=== PATIENT | male | born 1945 | race American Indian/Alaskan Native ===

== ENCOUNTER 2019-04-08 13:48 | Inpatient (IN) | payer MEDICARE ==
--- NOTE | 2019-04-08 15:19 | Emergency Department Report ---
ED General Adult HPI - General Chief complaint: Weakness Stated complaint: NEURO ISSUES Time Seen by Provider: 04/08/19 15:04 Source: family, EMS (verbal report received from emergency medical services. EMS documentation not available at time of chart dictation ), RN notes reviewed Mode of arrival: Stretcher Limitations: Language Barrier, Physical Limitation, Other (patient is demented and bedbound.) - History of Present Illness Initial comments: History of present illness obtained from EMS and patient's sister, who reports that she is the patient's power of tax associate attorney. The patient is a 74-year-old gentleman, with a history of dementia, probable mu ltiple strokes, bedbound. The patient was on hospice as per sister, taken off of hospice yesterday. The patient reportedly follows at the [facility]. As per verbal report from emergency medical services, 911 contacted for fluctuating mental status and poor appetite. There is no discrete loss of consciousness that EMS is aware of. As per the patient's sister, patient not eating or drinking well. There is no vomiting. No fevers. This has been going on for the past few days. Sister is not interested in tube feeds or PEG tube at this time. No diarrhea. Symptoms are constant, do not radiate anywhere as per sister, they worsen when the patient eats. Long-term goals of care and advanced directives not clarified at this point in time. -: Gradual Quality: other Consistency: other Improves with: other Worsens with: other ED Review of Systems ROS: Stated complaint: NEURO ISSUES Other details as noted in HPI Comment: Unobtainable due to pts medical conditions Constitutional: weakness Eyes: denies: eye discharge ENT: denies: congestion Respiratory: denies: wheezing Cardiovascular: denies: syncope Gastrointestinal: denies: diarrhea Genitourinary: denies: frequency Neurological: weakness ED Past Medical Hx - Past Medical History Hx CVA: Yes Hx Dementia: Yes - Surgical History Past Surgical History?: No - Social History Smoking Status: Former Smoker Substance Use Type: None ED Physical Exam - General Limitations: Language Barrier, Physical Limitation, Other (patient is demented. Patient is bedbound.) General appearance: in no apparent distress - Head Head exam: Present: atraumatic, normocephalic - Eye Eye exam: Present: normal appearance, PERRL - ENT ENT exam: Present: mucous membranes dry, normal external ear exam - Neck Neck exam: Present: normal inspection, full ROM. Absent: tenderness, meningismus - Respiratory Respiratory exam: Present: normal lung sounds bilaterally. Absent: respiratory distress - Cardiovascular Cardiovascular Exam: Present: normal rhythm, bradycardia, normal heart sounds. Absent: systolic murmur, diastolic murmur, rubs, gallop - GI/Abdominal GI/Abdominal exam: Present: soft, other (patient moans when I palpate on his abdomen initially. On subsequent examinations, he does not moan.). Absent: distended, guarding, rebound, rigid - Rectal Rectal exam: Present: normal inspection - Extremities Exam Extremities exam: Present: normal inspection, other (2+ pulses noted in the bilateral upper and lower extremities. There is no palpable cord. negative Homans sign. Muscular compartments are soft. The pelvis is stable.). Absent: tenderness - Back Exam Back exam: Present: normal inspection. Absent: tenderness, CVA tenderness (R), CVA tenderness (L), paraspinal tenderness, vertebral tenderness - Neurological Exam Neurological exam: Present: other (the patient is awake. The patient makes nonsensical sounds. He is moving his bilateral upper extremities. Detailed neurologic examination not possible secondary to dementia, bedbound status.) - Skin Skin exam: Present: warm, dry, intact, normal color, other (sacral wounds, or sacral ulcers noted.). Absent: rash ED Course Vital Signs 04/08/19 04/08/19 04/08/19 14:20 14:24 14:31 Temperature 98.2 F Pulse Rate 52 L Respiratory 10 L 13 18 Rate Blood Pressure 156/88 O2 Sat by Pulse 97 98 95 Oximetry 04/08/19 04/08/19 04/08/19 14:42 16:01 16:54 Temperature 97.6 F Pulse Rate 52 L 47 L Respiratory 13 Rate Blood Pressure 156/88 O2 Sat by Pulse 95 Oximetry 04/08/19 18:07 Temperature Pulse Rate 60 Respiratory 14 Rate Blood Pressure 148/97 O2 Sat by Pulse 82 L Oximetry - Reevaluation(s) Reevaluation #1: 04/08/19 15:40 Differential diagnosis, including but not limited to: Dysphagia, dehydration, swallowing disorder, pneumonia, aspiration, urinary trac t infection, malnutrition, constipation, obstruction, ileus Assessment and plan: 74-year-old gentleman with difficulty swallowing and episodes of fluctuating consciousness. In the emergency room, the patient is awake. He is protecting his airway at this time. Accu-Chek is within normal limits. No sacral ulcer noted. Nursing team has administered a bedside swallow screen for the patient, which he unfortunately felt. A formal fluoroscopic barium swallow has been ordered. Given history of fluctuating consciousness, CT scan of the brain will be obtained. X-ray of the chest shows no obvious pneumonia, however, there is nonspecific dilatation of intestinal anatomy noted subdiaphragmatic CT scan abdomen and pelvis ordered. Urinalysis ordered. Rectal temperature, remainder screening laboratory studies ordered. We will reassess after data points have resulted. Reevaluation #2: 04/08/19 18:14 Radiology not able to perform fluoroscopy study as there is currently nobody in- house/no available radiologist to perform the study. Laboratory studies suggest dehydration, possible urinary tract infection. Patient failed swallow screen, therefore, not a candidate for oral antibiotics or oral hydration. CT scan brain and abdomen pelvis pending at this time. Extensive discussion had with patient sister suspect power of tax associate attorney. She is amenable to the patient being hospitalized for supportive care. She is still feeling indecisive about a feeding tube at this point. Hospital team to admit the patient. We will defer to the inpatient team to further clarify an elaborate goals of care. Reevaluation #3: 04/08/19 18:53 CT scan of the brain is negative for acute disease. CT scan of the abdomen pelvis is negative for acute disease. Hospital team paged for admission. Reevaluation #4: 04/08/19 20:42 [employer]UTTER Draren Garcia to accept to the medical service ED Medical Decision Making - Lab Data Result diagrams: 04/08/19 16:21 04/08/19 16:21 Vital Signs 04/08/19 04/08/19 04/08/19 14:24 14:31 14:42 Temperature 98.2 F Pulse Rate 52 L 52 L Respiratory 13 18 Rate Blood Pressure 156/88 O2 Sat by Pulse 98 95 Oximetry Vital Signs 04/08/19 04/08/19 04/08/19 14:24 14:31 14:42 Temperature 98.2 F Pulse Rate 52 L 52 L Respiratory 13 18 Rate Blood Pressure 156/88 O2 Sat by Pulse 98 95 Oximetry Vital Signs 12/16/19 12/16/19 12/16/19 14:20 14:24 14:31 Temperature 98.2 F Pulse Rate 52 L Respiratory 10 L 13 18 Rate Blood Pressure 156/88 O2 Sat by Pulse 97 98 95 Oximetry 04/08/19 04/08/19 04/08/19 14:42 16:01 16:54 Temperature 97.6 F Pulse Rate 52 L 47 L Respiratory 13 Rate Blood Pressure 156/88 O2 Sat by Pulse 95 Oximetry Lab Results 04/08/19 04/08/19 04/08/19 Range/Units 15:21 16:21 16:21 WBC 7.2 (4.5-11.0) K/mm3 RBC 6.91 H (3.65-5.03) M/mm3 Hgb 17.6 H (11.8-15.2) gm/dl Hct 56.5 H (35.5-45.6) % MCV 82 L (84-94) fl MCH 26 L (28-32) pg MCHC 31 L (32-34) % RDW 18.4 H (13.2-15.2) % Plt Count 70 L (140-440) K/mm3 PT 12.9 (12.2-14.9) Sec. INR 0.96 (0.87-1.13) Sodium (137-145) mmol/L Potassium (3.6-5.0) mmol/L Chloride (98-107) mmol/L Carbon Dioxide (22-30) mmol/L Anion Gap mmol/L BUN (9-20) mg/dL Creatinine (0.8-1.5) mg/dL Estimated GFR ml/min BUN/Creatinine Ratio % Glucose (75-100) mg/dL POC Glucose 84 (70-105) Lactic Acid (0.7-2.0) mmol/L Calcium (8.4-10.2) mg/dL Magnesium (1.7-2.3) mg/dL Total Bilirubin (0.1-1.2) mg/dL AST (5-40) units/L ALT (7-56) units/L Alkaline Phosphatase (35-129) units/L Total Creatine Kinase (55-170) units/L Total Protein (6.3-8.2) g/dL Albumin (3.9-5) g/dL Albumin/Globulin Ratio % TSH (0.270-4.200) mlU/mL Urine Color (Yellow) Urine Turbidity (Clear) Urine pH (5.0-7.0) Ur Specific Citra (1.003-1.030) Urine Protein (Negative) mg/dL Urine Glucose (UA) (Negative) mg/dL Urine Ketones (Negative) mg/dL Urine Blood (Negative) Urine Nitrite (Negative) Urine Bilirubin (Negative) Urine Urobilinogen (<2.0) mg/dL Ur Leukocyte Esterase (Negative) Urine WBC (Auto) (0.0-6.0) /HPF Urine RBC (Auto) (0.0-6.0) /HPF Urine Bacteria (Auto) (Negative) /HPF Urine Mucus /HPF Salicylates (2.8-20.0) mg/dL Acetaminophen (10.0-30.0) ug/mL 04/08/19 04/08/19 04/08/19 Range/Units 16:21 16:21 16:21 WBC (4.5-11.0) K/mm3 RBC (3.65-5.03) M/mm3 Hgb (11.8-15.2) gm/dl Hct (35.5-45.6) % MCV (84-94) fl MCH (28-32) pg MCHC (32-34) % RDW (13.2-15.2) % Plt Count (140-440) K/mm3 PT (12.2-14.9) Sec. INR (0.87-1.13) Sodium 142 (137-145) mmol/L Potassium 4.9 (3.6-5.0) mmol/L Chloride 105.4 (98-107) mmol/L Carbon Dioxide 20 L (22-30) mmol/L Anion Gap 22 mmol/L BUN 7 L (9-20) mg/dL Creatinine 0.9 (0.8-1.5) mg/dL Estimated GFR > 60 ml/min BUN/Creatinine Ratio 8 % Glucose 86 (75-100) mg/dL POC Glucose (70-105) Lactic Acid (0.7-2.0) mmol/L Calcium 9.8 (8.4-10.2) mg/dL Magnesium 2.30 (1.7-2.3) mg/dL Total Bilirubin 0.70 (0.1-1.2) mg/dL AST 20 (5-40) units/L ALT 9 (7-56) units/L Alkaline Phosphatase 108 (35-129) units/L Total Creatine Kinase 79 (55-170) units/L Total Protein 7.4 (6.3-8.2) g/dL Albumin 4.0 (3.9-5) g/dL Albumin/Globulin Ratio 1.2 % TSH 1.230 (0.270-4.200) mlU/mL Urine Color (Yellow) Urine Turbidity (Clear) Urine pH (5.0-7.0) Ur Specific Citra (1.003-1.030) Urine Protein (Negative) mg/dL Urine Glucose (UA) (Negative) mg/dL Urine Ketones (Negative) mg/dL Urine Blood (Negative) Urine Nitrite (Negative) Urine Bilirubin (Negative) Urine Urobilinogen (<2.0) mg/dL Ur Leukocyte Esterase (Negative) Urine WBC (Auto) (0.0-6.0) /HPF Urine RBC (Auto) (0.0-6.0) /HPF Urine Bacteria (Auto) (Negative) /HPF Urine Mucus /HPF Salicylates < 0.3 L (2.8-20.0) mg/dL Acetaminophen (10.0-30.0) ug/mL 04/08/19 04/08/19 04/08/19 Range/Units 16:21 16:21 Unknown WBC (4.5-11.0) K/mm3 RBC (3.65-5.03) M/mm3 Hgb (11.8-15.2) gm/dl Hct (35.5-45.6) % MCV (84-94) fl MCH (28-32) pg MCHC (32-34) % RDW (13.2-15.2) % Plt Count (140-440) K/mm3 PT (12.2-14.9) Sec. INR (0.87-1.13) Sodium (137-145) mmol/L Potassium (3.6-5.0) mmol/L Chloride (98-107) mmol/L Carbon Dioxide (22-30) mmol/L Anion Gap mmol/L BUN (9-20) mg/dL Creatinine (0.8-1.5) mg/dL Estimated GFR ml/min BUN/Creatinine Ratio % Glucose (75-100) mg/dL POC Glucose (70-105) Lactic Acid 2.20 H* (0.7-2.0) mmol/L Calcium (8.4-10.2) mg/dL Magnesium (1.7-2.3) mg/dL Total Bilirubin (0.1-1.2) mg/dL AST (5-40) units/L ALT (7-56) units/L Alkaline Phosphatase (35-129) units/L Total Creatine Kinase (55-170) units/L Total Protein (6.3-8.2) g/dL Albumin (3.9-5) g/dL Albumin/Globulin Ratio % TSH (0.270-4.200) mlU/mL Urine Color Yellow (Yellow) Urine Turbidity Clear (Clear) Urine pH 5.0 (5.0-7.0) Ur Specific Citra 1.012 (1.003-1.030) Urine Protein <15 mg/dl (Negative) mg/dL Urine Glucose (UA) Neg (Negative) mg/dL Urine Ketones Neg (Negative) mg/dL Urine Blood Mod (Negative) Urine Nitrite Neg (Negative) Urine Bilirubin Neg (Negative) Urine Urobilinogen < 2.0 (<2.0) mg/dL Ur Leukocyte Esterase Tr (Negative) Urine WBC (Auto) 11.0 H (0.0-6.0) /HPF Urine RBC (Auto) 8.0 (0.0-6.0) /HPF Urine Bacteria (Auto) 1+ (Negative) /HPF Urine Mucus Few /HPF Salicylates (2.8-20.0) mg/dL Acetaminophen < 5.0 L (10.0-30.0) ug/mL - EKG Data -: EKG Interpreted by Me EKG shows normal: sinus rhythm Rate: normal - EKG Data When compared to previous EKG there are: previous EKG unavailable 04/08/19 18:15 The EKG today shows a bradycardic rhythm, sinus, 49 bpm, normal axis, QTC within normal limits, low voltage, left ventricular hypertrophy, no endorsement of chest pain, the EKG is abnormal, it is not consistent with ST elevation myocardial infarction. There is no prior for comparison. - Radiology Data Radiology results: report reviewed, image reviewed Critical care attestation.: If time is entered above; I have spent that time in minutes in the direct care of this critically ill patient, excluding procedure time. ED Disposition Clinical Impression: Dysphagia, Failure to thrive, Dementia, Bedbound Disposition: DC-09 OP ADMIT IP TO THIS HOSP Is pt being admited?: Yes Condition: Fair Referrals: PRIMARY CARE, [Primary Care Provider] - 3-5 Days
--- NOTE | 2019-04-08 15:40 | XRay Report ---
CHEST 1 VIEW INDICATION / CLINICAL INFORMATION: weakness aspiration. COMPARISON: None available. FINDINGS: SUPPORT DEVICES: None. HEART / MEDIASTINUM: No significant abnormality. LUNGS / PLEURA: No focal infiltrate is seen. There is mild elevation left hemidiaphragm.. No pneumot horax. ADDITIONAL FINDINGS: No significant additional findings. IMPRESSION: 1. No acute findings. Signer Name: Sharath Barnes MD Signed: 04/08/2019 3:35 PM Workstation Name: [id number]
[2019-04-08 16:40] LABS: Bacteria,Urine 1+ /HPF (Negative); Bilirubin,Urine NEG (Negative); Blood,Urine MOD (Negative); Color,Urine Yellow (Yellow); Mucus,Urine FEW /HPF; Protein,Urine <15 mg/dL mg/dL (Negative); Urobilinogen,Urine < 2.0 mg/dL (<2.0)
[2019-04-08 16:43] LABS: Hematocrit 56.5 % (35.5-45.6); Hemoglobin 17.6 gm/dl (11.8-15.2); Mean Corpuscular HGB Conc 31 % (32-34); Mean Corpuscular Volume 82 fl (84-94); Red Blood Count 6.91 M/mm3 (3.65-5.03); Red Cell Distribution Width 18.4 % (13.2-15.2)
[2019-04-08 16:52] LABS: INR 0.96 (0.87-1.13)
[2019-04-08 17:01] LABS: BUN/Creatinine Ratio 8; Blood Urea Nitrogen 7 mg/dL (9-20); Calcium 9.8 mg/dL (8.4-10.2); Hemolysis Index 93
[2019-04-08 17:09] LABS: Alanine Aminotransferase 9 units/L (7-56)
[2019-04-08] MEDS ORDERED: SODIUM CHLORIDE 0.9% 500 ML 500 ML IV ONE (17:09)
[2019-04-08 17:17] LABS: Platelet Count 70 K/mm3 (140-440)
[2019-04-08] MEDS: D5W/0.45% NACL 1,000 ML IV SCH (17:37)
--- NOTE | 2019-04-08 18:35 | Cat Scan Report ---
CT abdomen pelvis wo con INDICATION: abd pain ileus vs sbo. TECHNIQUE: All CT scans at this location are performed using CT dose reduction for ALARA by means of automated e xposure control. COMPARISON: None available. FINDINGS: Images are suboptimal since the patient was unable to raise his arms or hold his breath. Slight atelectasis in both lung bases. Liver, gallbladder, spleen and pancreas are grossly negative o n this noncontrast exam. There is very mild dilatation of the left collecting system, but the left ur eter is normal. Right kidney and both adrenals are negative. No urinary tract calculi. Pelvis Urinary bladder is mildly distended and slightly thick walled. Prostate is quite prominent. Normal ap pendix. No free fluid or inflammation. No abnormal bowel distention to indicate ileus or bowel obstru ction. No acute skeletal lesions. IMPRESSION: 1. Prostate enlargement and probable chronic bladder outlet obstruction. 2. No acute abnormalities. Signer Name: Suhail Palacios MD Signed: 04/08/2019 6:30 PM Workstation Name: [id number]
--- NOTE | 2019-04-08 18:39 | Cat Scan Report ---
CT head/brain wo con INDICATION / CLINICAL INFORMATION: 74 years Male; WEAK AMS CHRONIC. TECHNIQUE: Routine CT head without contrast. All CT scans at this location are performed using CT dos e reduction for ALARA by means of automated exposure control. Motion artifact COMPARISON: None. FINDINGS: BRAIN / INTRACRANIAL CONTENTS: No acute hemorrhage, mass effect, midline shift, hydrocephalus, or acu te, large territorial infarct. Moderate cerebral atrophy. There are extensive areas of decreased attenuation in the white matter of the cerebral hemispheres, a s well as the gangliocapsular regions. These are nonspecific findings and may be related to microangi opathy (hypertension, diabetes, atherosclerosis), given the patient's age. It might be difficult to e valuate for small areas of ischemia without diffusion imaging by MRI. CRANIOCERVICAL JUNCTION: No significant abnormality. ORBITS: No significant abnormality of visualized orbits. SINUSES / MASTOIDS: There is complete opacification of the left maxillary antrum. ADDITIONAL FINDINGS: No significant atherosclerotic disease appreciated. IMPRESSION: 1. No focal mass, hemorrhage, hydrocephalus, or acute, large territorial infarct. However, study is m arkedly limited by motion. Repeat scan may be of benefit, when patient's condition improves. Signer Name: Jayson Dewitt MD, III Signed: 04/08/2019 6:35 PM Workstation Name: [id number]
--- NOTE | 2019-04-08 21:35 | History and Physical Report ---
<JANET HERNANDEZ - Last Filed: 04/09/19 04:34> History of Present Illness Date of examination: 04/08/19 Date of admission: 04/08/19 20:47 Chief complaint: Dysphagia, FTT History of present illness: Patient is a 74-year-old male, with a past medical history of CVA and dementia who was transported via EMS to ER with complaints of difficulty swallowing, and refusing to eat or drink times several days per sister. Patient is currently bedbound, nonverbal and was recently discharged from hospice care by his sister 04/07/2019. Patient was transported to the ER today because of new onset of change in mental status. Past History Past Medical History: other (CVA, Dementia) Past Surgical History: Other (Unobtainable due to pts medical conditions) Social history: lives with family Family history: other (Unobtainable due to pts medical conditions) Medications and Allergies Allergies Allergy/AdvReac Type Severity Reaction Status Date / Time Unable to Assess Allergy Unverified 04/08/19 21:06 Active Meds: Active Medications Dextrose/Sodium Chloride (D5/0.45ns) 1,000 mls @ 100 mls/hr IV NOW DEVORA Last Admin: 04/08/19 17:37 Dose: 100 mls/hr Documented by: Review of Systems ROS unobtainable: due to mental status Exam - Constitutional Vitals: Temp Pulse Resp BP Pulse Ox 97.6 F 52 L 16 152/91 97 04/08/19 16:54 04/08/19 20:00 04/08/19 20:00 04/08/19 20:00 04/08/19 20:00 General appearance: Present: mild distress, disheveled - EENT ENT: poor dentition - Neck Neck: Present: supple - Respiratory Respiratory effort: normal Respiratory: bilateral: CTA - Cardiovascular Heart rate: 56 Rhythm: regular - Extremities Extremities: pulses intact - Abdominal General gastrointestinal: Present: non-distended Male genitourinary: Present: deferred - Integumentary Integumentary: Present: warm, dry - Musculoskeletal Musculoskeletal: generalized weakness - Neurologic Neurologic: other (pt is bedbound) Results - Labs CBC & Chem 7: 04/08/19 16:21 04/08/19 16:21 Labs: Laboratory Last Values WBC 7.2 K/mm3 (4.5-11.0) 04/08/19 16:21 RBC 6.91 M/mm3 (3.65-5.03) H 04/08/19 16:21 Hgb 17.6 gm/dl (11.8-15.2) H 04/08/19 16:21 Hct 56.5 % (35.5-45.6) H 04/08/19 16:21 MCV 82 fl (84-94) L 04/08/19 16:21 MCH 26 pg (28-32) L 04/08/19 16:21 MCHC 31 % (32-34) L 04/08/19 16:21 RDW 18.4 % (13.2-15.2) H 04/08/19 16:21 Plt Count 70 K/mm3 (140-440) L 04/08/19 16:21 PT 12.9 Sec. (12.2-14.9) 04/08/19 16:21 INR 0.96 (0.87-1.13) 04/08/19 16:21 Sodium 142 mmol/L (137-145) 04/08/19 16:21 Potassium 4.9 mmol/L (3.6-5.0) 04/08/19 16:21 Chloride 105.4 mmol/L (98-107) 04/08/19 16:21 Carbon Dioxide 20 mmol/L (22-30) L 04/08/19 16:21 Anion Gap 22 mmol/L 04/08/19 16:21 BUN 7 mg/dL (9-20) L 04/08/19 16:21 Creatinine 0.9 mg/dL (0.8-1.5) 04/08/19 16:21 Estimated GFR > 60 ml/min 04/08/19 16:21 BUN/Creatinine Ratio 8 % 04/08/19 16:21 Glucose 86 mg/dL (75-100) 04/08/19 16:21 POC Glucose 84 (70-105) 04/08/19 15:21 Lactic Acid 2.20 mmol/L (0.7-2.0) H* 04/08/19 16:21 Calcium 9.8 mg/dL (8.4-10.2) 04/08/19 16:21 Magnesium 2.30 mg/dL (1.7-2.3) 04/08/19 16:21 Total Bilirubin 0.70 mg/dL (0.1-1.2) 04/08/19 16:21 AST 20 units/L (5-40) 04/08/19 16:21 ALT 9 units/L (7-56) 04/08/19 16:21 Alkaline Phosphatase 108 units/L (35-129) 04/08/19 16:21 Total Creatine Kinase 79 units/L (55-170) 04/08/19 16:21 Total Protein 7.4 g/dL (6.3-8.2) 04/08/19 16:21 Albumin 4.0 g/dL (3.9-5) 04/08/19 16:21 Albumin/Globulin Ratio 1.2 % 04/08/19 16:21 TSH 1.230 mlU/mL (0.270-4.200) 04/08/19 16:21 Urine Color Yellow (Yellow) 04/08/19 Unknown Urine Turbidity Clear (Clear) 04/08/19 Unknown Urine pH 5.0 (5.0-7.0) 04/08/19 Unknown Ur Specific [place] 1.012 (1.003-1.030) 04/08/19 Unknown Urine Protein <15 mg/dl mg/dL (Negative) 04/08/19 Unknown Urine Glucose (UA) Neg mg/dL (Negative) 04/08/19 Unknown Urine Ketones Neg mg/dL (Negative) 04/08/19 Unknown Urine Blood Mod (Negative) 04/08/19 Unknown Urine Nitrite Neg (Negative) 04/08/19 Unknown Urine Bilirubin Neg (Negative) 04/08/19 Unknown Urine Urobilinogen < 2.0 mg/dL (<2.0) 04/08/19 Unknown Ur Leukocyte Esterase Tr (Negative) 04/08/19 Unknown Urine WBC (Auto) 11.0 /HPF (0.0-6.0) H 04/08/19 Unknown Urine RBC (Auto) 8.0 /HPF (0.0-6.0) 04/08/19 Unknown Urine Bacteria (Auto) 1+ /HPF (Negative) 04/08/19 Unknown Urine Mucus Few /HPF 04/08/19 Unknown Salicylates < 0.3 mg/dL (2.8-20.0) L 04/08/19 16: Acetaminophen < 5.0 ug/mL (10.0-30.0) L 04/08/19 16:21 - Imaging and Cardiology EKG: report reviewed (Bradycardia) Chest x-ray: report reviewed (No acute findings.), other CT scan - abdomen: report reviewed (Prostate enlargement and probable chronic bladder outlet obstruction. No acute abnormalities.) CT Scan - head: report reviewed (No focal mass, hemorrhage, hydrocephalus, or acute, large territorial infarct.) Assessment and Plan Assessment and plan: UTI -Urine culture -abx Failure to thrive -case management consult -Possible PEG tube placement Lactic Acidosis -IV fluids -Trend lactic Dehydration -Monitor labs - IV Fluids Dementia -Restart home meds once reconcile -reorient pt as needed Dysphagia -Possibly related to previous CVA -Consult speech - Barium swallow ordered DVT PPx -Scd VTE prophylaxis?: Mechanical <RANDI LOPEZ - Last Filed: 04/09/19 04:42> History of Present Illness Date of admission: 04/08/19 20:47 Medications and Allergies Active Meds: Active Medications Acetaminophen (Tylenol) 650 mg [place] Q4H PRN PRN Reason: Pain, Mild (1-3) Dextrose/Sodium Chloride (D5/0.45ns) 1,000 mls @ 100 mls/hr IV NOW DEVORA Last Admin: 04/09/19 00:06 Dose: Not Given Documented by: Ceftriaxone Sodium (Rocephin/Ns 1 Gm/50 Ml) 1 gm in 50 mls @ 100 mls/hr IV Q24HR DEVORA; Protocol Ondansetron HCl (Zofran) 4 mg IV Q8H PRN PRN Reason: Nausea And Vomiting Pantoprazole Sodium (Protonix) 40 mg IV QDAY DEVORA Sodium Chloride (Sodium Chloride Flush Syringe 10 Ml) 10 ml IV BID DEVORA Sodium Chloride (Sodium Chloride Flush Syringe 10 Ml) 10 ml IV PRN PRN PRN Reason: LINE FLUSH Exam - Constitutional Vitals: Temp Pulse Resp BP Pulse Ox 97.3 F L 49 L 21 146/88 96 04/08/19 22:26 04/08/19 22:26 04/08/19 22:26 04/08/19 22:26 04/08/19 22:26 Results - Labs CBC & Chem 7: 04/08/19 16:21 04/08/19 16:21 Labs: Laboratory Last Values WBC 7.2 K/mm3 (4.5-11.0) 04/08/19 16:21 RBC 6.91 M/mm3 (3.65-5.03) H 04/08/19 16:21 Hgb 17.6 gm/dl (11.8-15.2) H 04/08/19 16:21 Hct 56.5 % (35.5-45.6) H 04/08/19 16:21 MCV 82 fl (84-94) L 04/08/19 16:21 MCH 26 pg (28-32) L 04/08/19 16:21 MCHC 31 % (32-34) L 04/08/19 16:21 RDW 18.4 % (13.2-15.2) H 04/08/19 16:21 Plt Count 70 K/mm3 (140-440) L 04/08/19 16:21 PT 12.9 Sec. (12.2-14.9) 04/08/19 16:21 INR 0.96 (0.87-1.13) 04/08/19 16:21 Sodium 142 mmol/L (137-145) 04/08/19 16:21 Potassium 4.9 mmol/L (3.6-5.0) 04/08/19 16:21 Chloride 105.4 mmol/L (98-107) 04/08/19 16:21 Carbon Dioxide 20 mmol/L (22-30) L 04/08/19 16:21 Anion Gap 22 mmol/L 04/08/19 16:21 BUN 7 mg/dL (9-20) L 04/08/19 16:21 Creatinine 0.9 mg/dL (0.8-1.5) 04/08/19 16:21 Estimated GFR > 60 ml/min 04/08/19 16:21 BUN/Creatinine Ratio 8 % 04/08/19 16:21 Glucose 86 mg/dL (75-100) 04/08/19 16:21 POC Glucose 84 (70-105) 04/08/19 15:21 Lactic Acid 2.20 mmol/L (0.7-2.0) H* 04/08/19 16:21 Calcium 9.8 mg/dL (8.4-10.2) 04/08/19 16:21 Magnesium 2.30 mg/dL (1.7-2.3) 04/08/19 16:21 Total Bilirubin 0.70 mg/dL (0.1-1.2) 04/08/19 16:21 AST 20 units/L (5-40) 04/08/19 16:21 ALT 9 units/L (7-56) 04/08/19 16:21 Alkaline Phosphatase 108 units/L (35-129) 04/08/19 16:21 Total Creatine Kinase 79 units/L (55-170) 04/08/19 16:21 Total Protein 7.4 g/dL (6.3-8.2) 04/08/19 16:21 Albumin 4.0 g/dL (3.9-5) 04/08/19 16:21 Albumin/Globulin Ratio 1.2 % 04/08/19 16:21 TSH 1.230 mlU/mL (0.270-4.200) 04/08/19 16:21 Urine Color Yellow (Yellow) 04/08/19 Unknown Urine Turbidity Clear (Clear) 04/08/19 Unknown Urine pH 5.0 (5.0-7.0) 04/08/19 Unknown Ur Specific [place] 1.012 (1.003-1.030) 04/08/19 Unknown Urine Protein <15 mg/dl mg/dL (Negative) 04/08/19 Unknown Urine Glucose (UA) Neg mg/dL (Negative) 04/08/19 Unknown Urine Ketones Neg mg/dL (Negative) 04/08/19 Unknown Urine Blood Mod (Negative) 04/08/19 Unknown Urine Nitrite Neg (Negative) 04/08/19 Unknown Urine Bilirubin Neg (Negative) 04/08/19 Unknown Urine Urobilinogen < 2.0 mg/dL (<2.0) 04/08/19 Unknown Ur Leukocyte Esterase Tr (Negative) 04/08/19 Unknown Urine WBC (Auto) 11.0 /HPF (0.0-6.0) H 04/08/19 Unknown Urine RBC (Auto) 8.0 /HPF (0.0-6.0) 04/08/19 Unknown Urine Bacteria (Auto) 1+ /HPF (Negative) 04/08/19 Unknown Urine Mucus Few /HPF 04/08/19 Unknown Salicylates < 0.3 mg/dL (2.8-20.0) L 04/08/19 16:21 Acetaminophen < 5.0 ug/mL (10.0-30.0) L 04/08/19 16:21 Assessment and Plan Assessment and plan: Patient is unable to give a history due to dementia, unable to reach family. ER physician reported to me as the patient was brought to the emergency room for evaluation of decrease oral intake, he was taken off hospice and brought to the emergency room for evaluation. Patient is admitted for failure to thrive secondary to urinary tract infection, dehydration, agree with plan stated above. Doubt whether the patient will be able to do a barium swallow, speech to evaluate patient. Consult wound care for lower extremity wounds. Patient thrombocytopenic, hold chemical dvt prophalaxis
[2019-04-08] MEDS ORDERED: ONDANSETRON 4 MG/2 ML INJ IV PRN (23:18)
[2019-04-08] MEDS ORDERED: ACETAMINOPHEN 650 MG RECT SUPP PR PRN (23:20)
[2019-04-09] MEDS: D5W/0.45% NACL 1,000 ML IV SCH ×3 (00:06→16:26)
[2019-04-09 05:49] LABS: BUN/Creatinine Ratio 7; Blood Urea Nitrogen 6 mg/dL (9-20); Calcium 9.7 mg/dL (8.4-10.2); Hemolysis Index 11; Red Blood Count 6.53 M/mm3 (3.65-5.03)
[2019-04-09 05:50] LABS: Hematocrit 51.4 % (35.5-45.6); Hemoglobin 16.7 gm/dl (11.8-15.2); Mean Corpuscular HGB Conc 32 % (32-34); Mean Corpuscular Volume 79 fl (84-94); Red Cell Distribution Width 17.3 % (13.2-15.2)
[2019-04-09 05:52] LABS: Platelet Count 165 K/mm3 (140-440)
[2019-04-09 05:57] LABS: Lymphocytes % (Auto) 27.6 % (13.4-35.0)
[2019-04-09 05:58] LABS: Basophils % (Auto) 0.7 % (0.0-1.8); Lymphocytes # (Auto) 2.3 K/mm3 (1.2-5.4); Monocytes # (Auto) 0.8 K/mm3 (0.0-0.8); Monocytes % (Auto) 9.7 % (0.0-7.3)
[2019-04-09 05:59] LABS: Eosinophils # (Auto) 0.2 K/mm3 (0.0-0.4)
[2019-04-09 06:03] LABS: Basophils # (Auto) 0.1 K/mm3 (0.0-0.1)
[2019-04-09] MEDS: cefTRIAXone/NS 1 GM/50 ML 1 GM/50 ML BAG IV SCH (09:16)
[2019-04-09] MEDS: PANTOPRAZOLE 40 MG INJ IV SCH (09:24)
--- NOTE | 2019-04-09 17:52 | Progress Note ---
Assessment and Plan Assessment and plan: Patient is a 74-year-old male, with a past medical history of CVA and dementia who was transported via EMS to ER with complaints of difficulty swallowing, and refusing to eat or drink times several days per sister. Patient is currently bedbound, nonverbal and was recently discharged from hospice care by his sister 04/07/2019. Patient was transported to the ER today because of new onset of change in mental status. Acute metabolic encephalopathy -treat the UTI Severe Malnutrition, bmi 18 -consult [employer] UTI -Urine culture -abx Failure to thrive -case management consult -Possible PEG tube placement Lactic Acidosis -IV fluids -Trend lactic Dehydration -Monitor labs - IV Fluids Dementia -Restart home meds once reconcile -reorient pt as needed Dysphagia -Possibly related to previous CVA -Consult speech - Barium swallow ordered DVT PPx -Scd VTE prophylaxis: Mechanical Hospitalist Physical - Physical exam Narrative exam: Gen: cachetic, NAD, confused HEENT: NCAT, EOMI, PERRL, OP Clear Neck: supple, no adenopathy, no thyromegaly, no JVD CVS/Heart: RRR, normal S1S2, pulses present bilaterally Chest/Lungs: CTA B, Symmetrical chest expansion, good air entry bilaterally GI/Abdomen: soft, NTND, good bowel sounds, no guarding or rebound /Bladder: no suprapubic tenderness, no CVA or paraspinal tenderness Extermity/Skin: no c/c/e, no obvious rash MSK: FROM x 4 Neuro: CN 2-12 grossly intact, doesn't follow commands Psych: confused - Constitutional Vitals: Temp Pulse Resp BP Pulse Ox 98.5 F 55 L 18 157/90 97 04/09/19 13:51 04/09/19 13:51 04/09/19 13:51 04/09/19 13:51 04/09/19 13:51 General appearance: Present: mild distress, disheveled Results - Labs CBC & Chem 7: 04/09/19 04:12 04/09/19 04:12 Labs: Laboratory Last Values WBC 8.3 K/mm3 (4.5-11.0) 04/09/19 04:12 RBC 6.53 M/mm3 (3.65-5.03) H 04/09/19 04:12 Hgb 16.7 gm/dl (11.8-15.2) H 04/09/19 04:12 Hct 51.4 % (35.5-45.6) H 04/09/19 04:12 MCV 79 fl (84-94) L 04/09/19 04:12 MCH 26 pg (28-32) L 04/09/19 04:12 MCHC 32 % (32-34) 04/09/19 04:12 RDW 17.3 % (13.2-15.2) H 04/09/19 04:12 Plt Count 165 K/mm3 (140-440) D 04/09/19 04:12 Lymph % (Auto) 27.6 % (13.4-35.0) 04/09/19 04:12 [place] % (Auto) 9.7 % (0.0-7.3) H 04/09/19 04:12 Eos % (Auto) 3.0 % (0.0-4.3) 04/09/19 04:12 Baso % (Auto) 0.7 % (0.0-1.8) 04/09/19 04:12 Lymph # 2.3 K/mm3 (1.2-5.4) 04/09/19 04:12 [place] # 0.8 K/mm3 (0.0-0.8) 04/09/19 04:12 Eos # 0.2 K/mm3 (0.0-0.4) 04/09/19 04:12 Baso # 0.1 K/mm3 (0.0-0.1) 04/09/19 04:12 Seg Neutrophils % 59.0 % (40.0-70.0) 04/09/19 04:12 Seg Neutrophils # 4.9 K/mm3 (1.8-7.7) 04/09/19 04:12 PT 12.9 Sec. (12.2-14.9) 04/08/19 16:21 INR 0.96 (0.87-1.13) 04/08/19 16:21 Sodium 144 mmol/L (137-145) 04/09/19 04:12 Potassium 4.1 mmol/L (3.6-5.0) 04/09/19 04:12 Chloride 105.7 mmol/L (98-107) 04/09/19 04:12 Carbon Dioxide 24 mmol/L (22-30) 04/09/19 04:12 Anion Gap 18 mmol/L 04/09/19 04:12 BUN 6 mg/dL (9-20) L 04/09/19 04:12 Creatinine 0.9 mg/dL (0.8-1.5) 04/09/19 04:12 Estimated GFR > 60 ml/min 04/09/19 04:12 BUN/Creatinine Ratio 7 % 04/09/19 04:12 Glucose 107 mg/dL (75-100) H 04/09/19 04:12 POC Glucose 84 (70-105) 04/08/19 15:21 Lactic Acid 2.20 mmol/L (0.7-2.0) H* 04/08/19 16:21 Calcium 9.7 mg/dL (8.4-10.2) 04/09/19 04:12 Magnesium 2.30 mg/dL (1.7-2.3) 04/08/19 16:21 Total Bilirubin 0.70 mg/dL (0.1-1.2) 04/08/19 16:21 AST 20 units/L (5-40) 04/08/19 16:21 ALT 9 units/L (7-56) 04/08/19 16:21 Alkaline Phosphatase 108 units/L (35-129) 04/08/19 16:21 Total Creatine Kinase 79 units/L (55-170) 04/08/19 16:21 Total Protein 7.4 g/dL (6.3-8.2) 04/08/19 16:21 Albumin 4.0 g/dL (3.9-5) 04/08/19 16:21 Albumin/Globulin Ratio 1.2 % 04/08/19 16:21 TSH 1.230 mlU/mL (0.270-4.200) 04/08/19 16:21 Urine Color Yellow (Yellow) 04/08/19 Unknown Urine Turbidity Clear (Clear) 04/08/19 Unknown Urine pH 5.0 (5.0-7.0) 04/08/19 Unknown Ur Specific [place] 1.012 (1.003-1.030) 04/08/19 Unknown Urine Protein <15 mg/dl mg/dL (Negative) 04/08/19 Unknown Urine Glucose (UA) Neg mg/dL (Negative) 04/08/19 Unknown Urine Ketones Neg mg/dL (Negative) 04/08/19 Unknown Urine Blood Mod (Negative) 04/08/19 Unknown Urine Nitrite Neg (Negative) 04/08/19 Unknown Urine Bilirubin Neg (Negative) 04/08/19 Unknown Urine Urobilinogen < 2.0 mg/dL (<2.0) 04/08/19 Unknown Ur Leukocyte Esterase Tr (Negative) 04/08/19 Unknown Urine WBC (Auto) 11.0 /HPF (0.0-6.0) H 04/08/19 Unknown Urine RBC (Auto) 8.0 /HPF (0.0-6.0) 04/08/19 Unknown Urine Bacteria (Auto) 1+ /HPF (Negative) 04/08/19 Unknown Urine Mucus Few /HPF 04/08/19 Unknown Salicylates < 0.3 mg/dL (2.8-20.0) L 04/08/19 16:21 Acetaminophen < 5.0 ug/mL (10.0-30.0) L 04/08/19 16:21 Active Medications - Current Medications Current Medications: Generic Name Dose Route Start Last Admin Trade Name Freq PRN Reason Stop Dose Admin Acetaminophen 650 mg 04/08/19 23:20 Tylenol PA Q4H PRN Pain, Mild (1-3) Dextrose/Sodium Chloride 1,000 mls @ 100 mls/hr 04/08/19 18:00 04/09/19 16:26 D5/0.45ns IV 100 mls/hr NOW DEVORA Administration Ceftriaxone Sodium 1 gm in 50 mls @ 100 mls/hr 04/09/19 10:00 04/09/19 09:16 Rocephin/Ns 1 Gm/50 Ml IV 100 mls/hr Q24HR DEVORA Administration Protocol Ondansetron HCl 4 mg 04/08/19 23:18 Zofran IV Q8H PRN Nausea And Vomiting Pantoprazole Sodium 40 mg 04/09/19 10:00 04/09/19 09:24 Protonix IV 40 mg QDAY DEVORA Administration Sodium Chloride 10 ml 04/09/19 10:00 04/09/19 09:24 Sodium Chloride Flush Syringe 10 Ml IV 10 ml BID DEVORA Administration Sodium Chloride 10 ml 04/08/19 23:19 Sodium Chloride Flush Syringe 10 Ml IV PRN PRN LINE FLUSH Nutrition/Malnutrition Assess - Dietary Evaluation Nutrition/Malnutrition Findings: Nutrition Notes Start: 04/09/19 10:32 Freq: Status: Active Protocol: Document 04/09/19 10:32 (Rec: 04/09/19 11:26 [email or web address]) Co-Sign 04/09/19 10:32 LM Nutrition Notes Need for Assessment generated from: Low BMI Initial or Follow up Brief Note Current Diagnosis Stroke Other Pertinent Diagnosis Dementia, non-verbal Current Diet NPO Subjective/Other Information Screen for low BMI. Pt NPO for barrium swallow. Nutrition Intervention Follow-Up By: 04/10/19 Additional Comments FU for POC and intakes
[2019-04-10] MEDS: D5W/0.45% NACL 1,000 ML IV SCH ×2 (06:37→18:40)
[2019-04-10] MEDS: cefTRIAXone/NS 1 GM/50 ML 1 GM/50 ML BAG IV SCH (14:37)
[2019-04-10] MEDS: PANTOPRAZOLE 40 MG INJ IV SCH (14:37)
--- NOTE | 2019-04-10 18:27 | Progress Note ---
Assessment and Plan Assessment and plan: Patient is a 74-year-old male, with a past medical history of CVA and Advance dementia in home hospice who was transported via EMS to [facility] ER with complaints of difficulty swallowing, and refusing to eat or drink for several days per sister. Patient is currently bedbound, nonverbal and was recently discharged from hospice care by his sister 04/07/2019. Patient was transported to the ER today because of new onset of change in mental status. Acute metabolic encephalopathy -treat the UTI Severe Malnutrition, bmi 18 -consult [employer] UTI -Urine culture -abx Failure to thrive -case management consult -Possible PEG tube placement Lactic Acidosis -dehydrated -IV fluids -Trend lactic Dehydration -Monitor labs - IV Fluids Advance Dementia -Restart home meds once reconcile -reorient pt as needed Dysphagia -Possibly related to previous CVA -Consult speech -modified diet DVT PPx -Scd VTE prophylaxis: Mechanical Disposition: continue inpatient care, anticipate discharge tomorrow once Urine culture finalized, Hospitalist Physical - Physical exam Narrative exam: Gen: cachetic, NAD, confused HEENT: NCAT, EOMI, PERRL, OP Clear Neck: supple, no adenopathy, no thyromegaly, no JVD CVS/Heart: RRR, normal S1S2, pulses present bilaterally Chest/Lungs: CTA B, Symmetrical chest expansion, good air entry bilaterally GI/Abdomen: soft, NTND, good bowel sounds, no guarding or rebound /Bladder: no suprapubic tenderness, no CVA or paraspinal tenderness Extermity/Skin: no c/c/e, no obvious rash MSK: FROM x 4 Neuro: CN 2-12 grossly intact, doesn't follow commands Psych: confused - Constitutional Vitals: Temp Pulse Resp BP Pulse Ox 97.7 F 100 H 20 145/99 91 04/10/19 13:00 04/10/19 13:00 04/10/19 13:00 04/10/19 13:00 04/10/19 13:00 General appearance: Absent: mild distress, disheveled Results - Labs CBC & Chem 7: 04/09/19 04:12 04/09/19 04:12 Labs: Laboratory Last Values WBC 8.3 K/mm3 (4.5-11.0) 04/09/19 04:12 RBC 6.53 M/mm3 (3.65-5.03) H 04/09/19 04:12 Hgb 16.7 gm/dl (11.8-15.2) H 04/09/19 04:12 Hct 51.4 % (35.5-45.6) H 04/09/19 04:12 MCV 79 fl (84-94) L 04/09/19 04:12 MCH 26 pg (28-32) L 04/09/19 04:12 MCHC 32 % (32-34) 04/09/19 04:12 RDW 17.3 % (13.2-15.2) H 04/09/19 04:12 Plt Count 165 K/mm3 (140-440) D 04/09/19 04:12 Lymph % (Auto) 27.6 % (13.4-35.0) 04/09/19 04:12 [place] % (Auto) 9.7 % (0.0-7.3) H 04/09/19 04:12 Eos % (Auto) 3.0 % (0.0-4.3) 04/09/19 04:12 Baso % (Auto) 0.7 % (0.0-1.8) 04/09/19 04:12 Lymph # 2.3 K/mm3 (1.2-5.4) 04/09/19 04:12 [place] # 0.8 K/mm3 (0.0-0.8) 04/09/19 04:12 Eos # 0.2 K/mm3 (0.0-0.4) 04/09/19 04:12 Baso # 0.1 K/mm3 (0.0-0.1) 04/09/19 04:12 Seg Neutrophils % 59.0 % (40.0-70.0) 04/09/19 04:12 Seg Neutrophils # 4.9 K/mm3 (1.8-7.7) 04/09/19 04:12 PT 12.9 Sec. (12.2-14.9) 04/08/19 16:21 INR 0.96 (0.87-1.13) 04/08/19 16:21 Sodium 144 mmol/L (137-145) 04/09/19 04:12 Potassium 4.1 mmol/L (3.6-5.0) 04/09/19 04:12 Chloride 105.7 mmol/L (98-107) 04/09/19 04:12 Carbon Dioxide 24 mmol/L (22-30) 04/09/19 04:12 Anion Gap 18 mmol/L 04/09/19 04:12 BUN 6 mg/dL (9-20) L 04/09/19 04:12 Creatinine 0.9 mg/dL (0.8-1.5) 04/09/19 04:12 Estimated GFR > 60 ml/min 04/09/19 04:12 BUN/Creatinine Ratio 7 % 04/09/19 04:12 Glucose 107 mg/dL (75-100) H 04/09/19 04:12 POC Glucose 84 (70-105) 04/08/19 15:21 Lactic Acid 2.20 mmol/L (0.7-2.0) H* 04/08/19 16:21 Calcium 9.7 mg/dL (8.4-10.2) 04/09/19 04:12 Magnesium 2.30 mg/dL (1.7-2.3) 04/08/19 16:21 Total Bilirubin 0.70 mg/dL (0.1-1.2) 04/08/19 16:21 AST 20 units/L (5-40) 04/08/19 16:21 ALT 9 units/L (7-56) 04/08/19 16:21 Alkaline Phosphatase 108 units/L (35-129) 04/08/19 16:21 Total Creatine Kinase 79 units/L (55-170) 04/08/19 16:21 Total Protein 7.4 g/dL (6.3-8.2) 04/08/19 16:21 Albumin 4.0 g/dL (3.9-5) 04/08/19 16:21 Albumin/Globulin Ratio 1.2 % 04/08/19 16:21 TSH 1.230 mlU/mL (0.270-4.200) 04/08/19 16:21 Urine Color Yellow (Yellow) 04/08/19 Unknown Urine Turbidity Clear (Clear) 04/08/19 Unknown Urine pH 5.0 (5.0-7.0) 04/08/19 Unknown Ur Specific [place] 1.012 (1.003-1.030) 04/08/19 Unknown Urine Protein <15 mg/dl mg/dL (Negative) 04/08/19 Unknown Urine Glucose (UA) Neg mg/dL (Negative) 04/08/19 Unknown Urine Ketones Neg mg/dL (Negative) 04/08/19 Unknown Urine Blood Mod (Negative) 04/08/19 Unknown Urine Nitrite Neg (Negative) 04/08/19 Unknown Urine Bilirubin Neg (Negative) 04/08/19 Unknown Urine Urobilinogen < 2.0 mg/dL (<2.0) 04/08/19 Unknown Ur Leukocyte Esterase Tr (Negative) 04/08/19 Unknown Urine WBC (Auto) 11.0 /HPF (0.0-6.0) H 04/08/19 Unknown Urine RBC (Auto) 8.0 /HPF (0.0-6.0) 04/08/19 Unknown Urine Bacteria (Auto) 1+ /HPF (Negative) 04/08/19 Unknown Urine Mucus Few /HPF 04/08/19 Unknown Salicylates < 0.3 mg/dL (2.8-20.0) L 04/08/19 16:21 Acetaminophen < 5.0 ug/mL (10.0-30.0) L 04/08/19 16:21 Active Medications - Current Medications Current Medications: Generic Name Dose Route Start Last Admin Trade Name Freq PRN Reason Stop Dose Admin Acetaminophen 650 mg 04/08/19 23:20 Tylenol [place] Q4H PRN Pain, Mild (1-3) Dextrose/Sodium Chloride 1,000 mls @ 100 mls/hr 04/08/19 18:00 04/10/19 06:37 D5/0.45ns IV 100 mls/hr NOW DEVORA Administration Ceftriaxone Sodium 1 gm in 50 mls @ 100 mls/hr 04/09/19 10:00 04/10/19 14:37 Rocephin/Ns 1 Gm/50 Ml IV 100 mls/hr Q24HR DEVORA Administration Protocol Ondansetron HCl 4 mg 04/08/19 23:18 Zofran IV Q8H PRN Nausea And Vomiting Pantoprazole Sodium 40 mg 04/09/19 10:00 04/10/19 14:37 Protonix IV 40 mg QDAY DEVORA Administration Sodium Chloride 10 ml 04/09/19 10:00 04/10/19 14:38 Sodium Chloride Flush Syringe 10 Ml IV 10 ml BID DEVORA Administration Sodium Chloride 10 ml 04/08/19 23:19 Sodium Chloride Flush Syringe 10 Ml IV PRN PRN LINE FLUSH Nutrition/Malnutrition Assess - Dietary Evaluation Nutrition/Malnutrition Findings: Nutrition Notes Start: 04/09/19 10:32 Freq: Status: Active Protocol: Document 04/10/19 09:48 MK (Rec: 04/10/19 10:20 MK [id number]) Co-Sign 04/10/19 09:48 LM Nutrition Notes Need for Assessment generated from: MD Order,Low BMI Initial or Follow up Assessment Current Diagnosis Decubitus(Pressure Ulcer), Stroke Other Pertinent Diagnosis L foot ulcer, FTT, dysphaiga, UTI, dementia, Current Diet Purred, thin liquids Labs/Tests Reviewed Pertinent Medications Reviewed Height 6 ft 3 in Weight 66.3 kg [place] Body Weight (kg) 89.09 BMI 18.2 Subjective/Other Information MD consult for malnutrition. Slight temporal wasting. Supervisor [employer] observed 100% of breakfast consumed. 100% dinner consumed per chart. Tim score of 12. Burn Absent Trauma Absent Minimum of two criteria No Body Fat Depletion Mild depletion (non-severe) #1 Nutrition Diagnosis Increased nutrient needs ( specify in comment below) Comments: Protein Etiology wound healing As Evidenced by Signs and Symptoms left foot pressure ulcer Is patient on ventilator? No Is Patient Ambulatory and/or Out of Bed No REE-([facility]-confined to bed) [phone] Additional Notes Pro: 79-100g (1.2-1.5g/kg) Fluid: 1ml/kcal Nutrition Intervention Change Diet Order: Continue current Add Supplement/Snack (indicate name/kcal Ensure daily /protein ) Provides kCal: 350 Provides Protein (gm) 20 Goal #1 Meet at least 80% of protein and energy needs via PO. Anticipated Discharge Needs: Pureed, thin liquids Follow-Up By: 04/12/19 Additional Comments FU for intakes and ONS tolerance
[2019-04-11] MEDS: cefTRIAXone/NS 1 GM/50 ML 1 GM/50 ML BAG IV SCH (10:00)
[2019-04-11] MEDS: PANTOPRAZOLE 40 MG INJ IV SCH (10:00)
--- NOTE | 2019-04-11 15:47 | Discharge Summary ---
Providers - Providers Date of Admission: 04/08/19 20:47 Date of discharge: 04/11/19 Attending physician: MELANIE JACK 04/08/19 22:52 Consult to Case Management [CONS] Routine Services Needed at Discharge: Home Health Services Notified:: JESSY Additional Physician Instructions: FTT 04/08/19 22:58 Speech Therapy Evaluation and Treat [CONS] Routine Reason For Exam: barium swallow 04/09/19 03:05 Consult to Wound/ET Nurse [CONS] Routine Reason For Exam: wound eval 04/09/19 13:11 Speech Therapy Evaluation and Treat [CONS] Routine Reason For Exam: swallow eval 04/09/19 20:58 Consult to Dietitian/Nutrition [CONS] Routine Physician Instructions: Reason For Exam: Reason for Consult: Malnutrition 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 Patient is currently bedbound, nonverbal and was recently discharged from hospice care by his sister 04/07/2019. Patient was transported to the ER today because of new onset of change in mental status. 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 Faecalis UTI -Urine culture -abx Failure to thrive -case management consult -Possible PEG tube placement Lactic Acidosis -dehydrated -IV fluids -Trend lactic Dehydration -Monitor labs - IV Fluids Advance Dementia -Restart home meds once reconcile -reorient pt as needed Dysphagia -Possibly related to previous CVA -Consult speech-modified diet DVT PPx -Scd VTE prophylaxis: Mechanical Disposition: [id number] HOME UNDER HOME [facility] Time spent for discharge: 35 minutes Core Measure Documentation - Palliative Care Palliative Care/ Comfort Measures: Not Applicable - Core Measures Any of the following diagnoses?: none - VTE Discharge Requirements Deep Vein Thrombosis/Pulmonary Embolism Present on Admission: No Has pt received <5 days of overlap therapy or INR<2.0: No Anticoagulant overlap therapy prescribed at discharge: No Contraindication No Overlap Therapy order at DC: Not Indicated Exam - Physical Exam Narrative exam: Gen: cachetic, NAD, confused HEENT: NCAT, EOMI, PERRL, OP Clear Neck: supple, no adenopathy, no thyromegaly, no JVD CVS/Heart: RRR, normal S1S2, pulses present bilaterally Chest/Lungs: CTA B, Symmetrical chest expansion, good air entry bilaterally GI/Abdomen: soft, NTND, good bowel sounds, no guarding or rebound /Bladder: no suprapubic tenderness, no CVA or paraspinal tenderness Extermity/Skin: no c/c/e, no obvious rash MSK: FROM x 4 Neuro: CN 2-12 grossly intact, doesn't follow commands Psych: confused - Constitutional Vitals: Temp Pulse Resp BP Pulse Ox 98.2 F 75 20 143/102 96 04/11/19 14:00 04/11/19 14:00 04/11/19 14:00 04/11/19 07:46 04/11/19 14:00 Plan Activity: other (no strenous activity) Diet: low salt Follow up with: PRIMARY CARE, [Primary Care Provider] - 3-5 Days Prescriptions: Acetaminophen [Acetaminophen SUPPOS] 650 mg NM Q4H PRN #15 supp.rect PRN Reason: Non Cardiac Pain Or Temp>100.5 Amoxicillin/Potassium Clav [Augmentin 875-125 Tablet] 1 each PO BID #14 tablet Lansoprazole Solutab [Prevacid Solutab] 30 mg PO DAILY #15 tab.rapdis
[2019-04-11 18:28] VITALS: BP 145/91
== END 2019-04-11 18:30 | disposition hospice, home (50) | DRG 70 ==
LOC: ED 13:48 → 2B-ACE 20:47
PROVIDERS: ADMIT Internal Medicine; ATTEND Internal Medicine
DX: G93.41 Metabolic encephalopathy (principal); E43 Unspecified severe protein-calorie malnutrition; N39.0 Urinary tract infection, site not specified; E87.2 Acidosis; Z68.1 Body mass index [BMI] 19.9 or less, adult; R13.10 Dysphagia, unspecified; F03.90 Unspecified dementia, unspecified severity, without behavioral disturbance, psychotic disturbance, mood disturbance, and anxiety; B95.2 Enterococcus as the cause of diseases classified elsewhere; E86.0 Dehydration; Z86.73 Personal history of transient ischemic attack (TIA), and cerebral infarction without residual deficits; Z74.01 Bed confinement status
CPT/HCPCS: 36415; 70450; 71045; 74176; 80048; 80053; 80320; 81001; 82140; 82550; 82962; 83735; 84443; 85025; 85027; 85610; 87076; 87086; 87186; 93005; 93010; 96365; G0378; C9113; G0480; J0696; J1956